=== PATIENT | male | born 1950 | race Two or more races ===

== ENCOUNTER 2018-08-20 07:50 | Inpatient (IN) | payer MEDICARE, BC ==
[~2018-08-20] VITALS: Ht 167.6 cm; Wt 76.7 kg
--- NOTE | 2018-08-20 07:52 | NUR ---
BIB SELF 68 YEAR OLD MALE C/O EPIGASTRIC PAIN SINCE THIS AM. VOMITED X1 AT 0730. ALERT AND ORIENTED X4, BREATHIGN EVEN AND UNLABORED WITH NO DISTRESS NOTED. SKIN WARM TO TOUCH AND INTACT. AWAITING TO BE SEEN BY .
[2018-08-20] MEDS ORDERED: PANTOPRAZOLE 40 MG VIAL ONE (08:12)
[2018-08-20] MEDS ORDERED: ONDANSETRON HCL/PF 4 MG/2 ML VIAL ONE (08:12)
[2018-08-20] MEDS ORDERED: HYDROMORPHONE INJ 2 MG/ML DISP.SYRIN ONE (08:13)
[2018-08-20 08:28] LABS: BASOPHILS # (AUTO) 0.1 /CMM (0.0-0.2); BASOPHILS % (AUTO) 0.5 % (0.0-2.0); EOSINOPHILS % (AUTO) 1.8 % (0.0-6.0); HEMATOCRIT 47 % (39-51); HEMOGLOBIN 15.2 g/dL (13.5-17.5); LYMPHOCYTES # (AUTO) 1.9 /CMM (0.8-4.8); MEAN CORPUSCULAR HGB CONC 33 g/dl (31.0-36.0); MEAN CORPUSCULAR VOLUME 91 fL (80-96); MONOCYTES # (AUTO) 0.4 /CMM (0.1-1.30); MONOCYTES % (AUTO) 2.7 % (2.0-12.0); NEUTROPHILS # (AUTO) 13.1 /CMM (1.8-8.9); PLATELET COUNT (AUTO) 253 /CMM (150-450); RED BLOOD CELL COUNT(AUTO) 5.13 MIL/uL (4.5-6.0); WHITE BLOOD COUNT (AUTO) 15.7 K/uL (4.3-11.0)
[2018-08-20] MEDS ORDERED: ONDANSETRON HCL/PF 4 MG/2 ML VIAL IVP PRN ×2 (08:30→11:30)
[2018-08-20] MEDS ORDERED: IV NS 0.9% 1,000 ML BAG IV ONE (08:30)
[2018-08-20] MEDS ORDERED: HYDROMORPHONE 1 MG/1 ML DISP.SYRIN IV ONE (08:30)
[2018-08-20] MEDS ORDERED: NORMAL SALINE FLUSH 10 ML SYR IV SCH (08:30)
--- NOTE | 2018-08-20 08:39 | NUR ---
RAD PATY HAT BEDSIDE TO TAKE PATIENT FOR CT SCAN
[2018-08-20 08:46] LABS: CALCIUM, SERUM 9.5 mg/dL (8.5-10.1); CARBON DIOXIDE 27 mmol/L (21-32); CHLORIDE 99 mmol/L (98-107); CREATININE 0.9 mg/dL (0.6-1.3); GLUCOSE 193 mg/dL (74-106); POTASSIUM 3.5 mmol/L (3.5-5.1); SODIUM SERUM 136 mmol/L (136-145); UREA NITROGEN, BLOOD 13 mg/dL (7-18)
[2018-08-20] MEDS ORDERED: PANTOPRAZOLE 40 MG VIAL IV SCH (09:00)
[2018-08-20] MEDS ORDERED: GLIP5TAB13 PO (09:23)
[2018-08-20] MEDS ORDERED: METF-440 PO (09:23)
[2018-08-20] MEDS ORDERED: ATEN50TA PO (09:23)
[2018-08-20] MEDS ORDERED: ROSU5TAB12 PO (09:23)
[2018-08-20] MEDS ORDERED: LOSA1TAB42 PO (09:23)
[2018-08-20] MEDS ORDERED: ESOM40CA52 PO (09:23)
[2018-08-20] MEDS ORDERED: AMLO10TA7 PO (09:23)
[2018-08-20] MEDS ORDERED: MULT-451 PO (09:27)
[2018-08-20] MEDS ORDERED: ASPI-1169 PO (09:27)
[2018-08-20 09:56] LABS: AMYLASE 1633 U/L (25-115)
[2018-08-20 10:07] LABS: LIPASE 50918 U/L (73-393)
--- NOTE | 2018-08-20 10:20 | NUR ---
[facility]
--- NOTE | 2018-08-20 11:12 | NUR ---
REPORT GIVEN TO TYLER PATIENT WILL BE GOING TO ROOM 209
[2018-08-20 11:15] VITALS: BP 126/83
--- NOTE | 2018-08-20 11:15 | NUR ---
MS VOCAL MUSIC TEACHER 68 male admitted to [facility] for acute pancreatitis. Patient is A/O x4, cooperative and pleasant. Ambulates independently, denies pain. Stable on RA, oxygen sat 93%. Skin intact. Orientation to room, unit, staff. Instructed to use call light if he needs assistance, verbalized understanding, maintained safety. Will cont to monitor.
[2018-08-20] MEDS ORDERED: Z GUARD REMEDY 2 OZ OINT TP PRN (11:30)
[2018-08-20] MEDS ORDERED: DEXTROSE 50%-WATER 50 ML DISP.SYRIN IV PRN (11:30)
[2018-08-20] MEDS ORDERED: ACETAMINOPHEN 325 MG TABLET PO PRN (11:30)
[2018-08-20] MEDS ORDERED: MORPHINE SULFATE INJ 2 MG/ML DISP.SYRIN IV PRN (11:30)
[2018-08-20] MEDS ORDERED: INSULIN REGULAR, HUMAN 100 UNIT/ML 3 ML VIAL SQ PRN (11:30)
[2018-08-20] MEDS: BLOOD SUGAR DIAGNOSTIC 1 EACH STRIP IN SCH ×2 (11:52→17:20)
[2018-08-20] MEDS: HYDROMORPHONE INJ 2 MG/ML DISP.SYRIN IV PRN ×3 (11:53→20:21)
[2018-08-20] MEDS: IV NS 0.9% 1,000 ML IV PRN ×2 (11:54→18:17)
[2018-08-20] MEDS ORDERED: HYDROMORPHONE INJ 0.5 MG/0.5 ML SYRINGE IV PRN (12:00)
[2018-08-20] MEDS: MULTIVIT W/MINERALS 1 TAB TABLET PO SCH (12:08)
[2018-08-20] MEDS: ENOXAPARIN SODIUM 40 MG/0.4 ML DISP.SYRIN SQ SCH (12:08)
--- NOTE | 2018-08-20 13:49 | NUR ---
Patient is seen by ELIEZER Vickers, patient to be transferred to [facility] for Tele monitoring. Report given to JEREMIE Johnson for continuity of care.
[2018-08-20 14:50] VITALS: BP 110/69
--- NOTE | 2018-08-20 14:50 | NUR ---
MS/line department supervisor Patient transferred to in stable condition via wheelchair. All personal belongings withpatient, accompanied by PHARMACIST ASSISTANT and son. Report already given to Alex.
--- NOTE | 2018-08-20 14:56 | NUR ---
TELE/BUSINESS INTELLIGENCE DIRECTOR PATIENT TRANSFER FROM MS 2 IN STABLE CONDITION VIA WHEEL CHAIR ACCOMPANIED BY NURSE. REPORT GIVEN BY TYLER CHAO. A/O X 4. NO SIGNS OF ACUTE DISTRESS. NO COMPLAIN OF PAIN OR DISCOMFORT AT THIS TIME. ON TELE MONITOR NOTED WITH SINUS RHYTHM 80. ALL NEEDS ATTENDED TO. CALL LIGHT WITHIN REACH. WILL CONTINUE TO MONITOR TO ENSURE SAFETY.
[2018-08-20 15:06] VITALS: BP 110/69
[2018-08-20 16:00] VITALS: BP 114/70
--- NOTE | 2018-08-20 18:36 | NUR ---
TELE/RN CLOSING NOTE PATIENT IN BED IN STABLE CONDITION. A/O X 4. NO SIGNS OF ACUTE DISTRESS. NO COMPLAIN OF PAIN OR DISCOMFORT. ON TELE MONITOR NOTED WITH SINUS RHYTHM OF 76. NPO STATUS AT THIS TIME SECONDARY TO ACUTE PANCREATITIS. ALL NEEDS ATTENDED TO. CALL LIGHT WITHIN REACH. WILL ENDORSE TO NEXT SHIFT FOR CONTINUITY OF CARE.
--- NOTE | 2018-08-20 18:58 | NUR ---
TELE/RN SEEN BY ELIEZER RUSSO FOR GI WITH ORDERS TO DC NORMAL SALINE FLUIDS AND START LR AT 150MLS/HR.
--- NOTE | 2018-08-20 19:55 | NUR ---
RAILWAY STATION MANAGER OPENING NOTES RECEIVED PT IN BED, AWAKE ALERT ORIENTED X4, BREATHING EVEN AND UNLABORED ON ROOM AIR, NO COUGH, CONGESTION OR SOB NOTED, COMPLAINT OF EPIGASTRIC PAIN 01/16, WILL ADMINISTER PRN MED ORDERED. IV ACCESS ON THE R HAND #20 G WITH LR @150ML/HR. DATA OPERATIONS MANAGER IN PLACE, SR IN THE 70S. BED IN LOCKED POSITION, CALL LIGHT WITHIN REACH AT ALL TIMES, WILL CONTINUE TO MONITOR
[2018-08-20 20:00] VITALS: BP 123/77
[2018-08-20] MEDS: IV LR 1000 ML 1,000 ML IV PRN (20:23)
--- NOTE | 2018-08-20 20:40 | NUR ---
EGD CONSENT FORM SIGNED IN CHART
[2018-08-21] VITALS: BP 120/70
[2018-08-21] MEDS: HYDROMORPHONE INJ 2 MG/ML DISP.SYRIN IV PRN ×6 (00:18→22:30)
[2018-08-21] MEDS: LORAZEPAM INJ 2 MG/ML VIAL IV PRN (00:18)
[2018-08-21] MEDS: BLOOD SUGAR DIAGNOSTIC 1 EACH STRIP IN SCH ×4 (00:25→18:09)
[2018-08-21 04:15] VITALS: BP 135/76
[2018-08-21] MEDS: AMLODIPINE BESYLATE 10 MG TABLET PO SCH ×2 (05:25→08:59)
--- NOTE | 2018-08-21 06:06 | NUR ---
BAR STAFF CLOSING NOTES PT REMAINS IN BED SLEEPING, EASILY AROUSED TO TOUCH OR NAME CALL, BREATHING EVEN AND UNLABORED ON ROOM AIR, NO COUGH, CONGESTION OR SOB NOTED, NO COMPLAINT OF PAIN OR DISCOMFORT AT THIS TIME. IV ACCESS ON THE R HAND #20 G WITH LR @150ML/HR. ANALYST MARKET INTELLIGENCE IN PLACE, SR IN THE 70S. ALL NEEDS ATTENDED TO. BED IN LOCKED POSITION, CALL LIGHT WITHIN REACH AT ALL TIMES, WILL ENDORSE TO DAY NURSE FOR ZURI.
[2018-08-21] MEDS: IV LR 1000 ML 1,000 ML IV PRN ×2 (06:56→17:57)
--- NOTE | 2018-08-21 07:45 | NUR ---
RESEARCH NEUROPSYCHOLOGIST NOTES RECEIVED PATIENT IN BED ALERT ORIENTED X 3. NO ACUTE DISTRESS NOTED. BREATHING UNLABORED. NO SOB NOTED. DENIED ANY PAIN AT THIS TIME. IV ACCESS, PATENT AND INTACT, NO REDNESS, NO SWELLING NOTED. SAFETY MEASURES IN PLACE. CALL LIGHT WITHIN REACH. WILL CONTINUE TO MONITOR ACCORDINGLY.
[2018-08-21 08:00] VITALS: BP 130/71
[2018-08-21 08:01] LABS: BASOPHILS # (AUTO) 0.1 /CMM (0.0-0.2); BASOPHILS % (AUTO) 1.1 % (0.0-2.0); EOSINOPHILS % (AUTO) 3.2 % (0.0-6.0); HEMATOCRIT 39 % (39-51); HEMOGLOBIN 13.1 g/dL (13.5-17.5); LYMPHOCYTES # (AUTO) 1.9 /CMM (0.8-4.8); LYMPHOCYTES % (AUTO) 22.4 % (20.0-44.0); MEAN CORPUSCULAR HGB CONC 34 g/dl (31.0-36.0); MEAN CORPUSCULAR VOLUME 90 fL (80-96); MONOCYTES # (AUTO) 0.5 /CMM (0.1-1.30); MONOCYTES % (AUTO) 5.4 % (2.0-12.0); NEUTROPHILS # (AUTO) 5.8 /CMM (1.8-8.9); NEUTROPHILS % (AUTO) 67.9 % (43.0-81.0); PLATELET COUNT (AUTO) 160 /CMM (150-450); RED BLOOD CELL COUNT(AUTO) 4.33 MIL/uL (4.5-6.0); WHITE BLOOD COUNT (AUTO) 8.6 K/uL (4.3-11.0)
[2018-08-21 08:27] LABS: ALANINE AMINOTRANSFERASE 35 U/L (12-78); ALKALINE PHOSPHATASE 91 U/L (46-116); AMYLASE 157 U/L (25-115); ASPARTATE AMINOTRANSFERASE 27 U/L (15-37); BILIRUBIN,DIRECT 0.2 mg/dL (0.0-0.2); BILIRUBIN,TOTAL 0.6 mg/dL (0.2-1.0); CALCIUM, SERUM 8.9 mg/dL (8.5-10.1); CARBON DIOXIDE 26 mmol/L (21-32); CHLORIDE 104 mmol/L (98-107); CREATININE 0.8 mg/dL (0.6-1.3); GLUCOSE 123 mg/dL (74-106); PHOSPHORUS 2.7 mg/dL (2.5-4.9); POTASSIUM 3.5 mmol/L (3.5-5.1); SODIUM SERUM 139 mmol/L (136-145); TOTAL PROTEIN, SERUM 6.8 g/dL (6.4-8.2); UREA NITROGEN, BLOOD 10 mg/dL (7-18)
[2018-08-21 08:35] LABS: ALBUMIN 3.1 g/dL (3.4-5.0); MAGNESIUM 1.6 mg/dL (1.8-2.4)
[2018-08-21 08:42] LABS: CHOLESTEROL 118 mg/dL (<200); HDL CHOLESTEROL 47 mg/dL (40-60); TRIGLYCERIDES 95 mg/dL (30-150)
[2018-08-21 08:43] LABS: LDL 60 mg/dL (0-99)
[2018-08-21] MEDS: PANTOPRAZOLE 40 MG VIAL IV SCH (08:48)
[2018-08-21] MEDS: ENOXAPARIN SODIUM 40 MG/0.4 ML DISP.SYRIN SQ SCH (08:53)
[2018-08-21] MEDS: LOSARTAN POTASSIUM 50 MG TABLET PO SCH (08:58)
[2018-08-21] MEDS: HYDROCHLOROTHIAZIDE 25 MG TABLET PO SCH (08:58)
[2018-08-21] MEDS: ATENOLOL 50 MG TABLET PO SCH (08:59)
[2018-08-21] MEDS: MULTIVIT W/MINERALS 1 TAB TABLET PO SCH (08:59)
[2018-08-21] MEDS ORDERED: Medication Not On Formulary EA (Losartan/Hydrochlorothiazide (Losartan-Hctz 100-12.5 Mg PO SCH (09:00)
[2018-08-21 09:20] LABS: LIPASE 3397 U/L (73-393)
[2018-08-21] MEDS ORDERED: ZOLPIDEM TARTRATE 5 MG TABLET PO PRN (11:00)
[2018-08-21] MEDS: Magnesium 1GM/D5W 100ML PREMIX 100 ML IV SCH ×2 (11:22→12:23)
[2018-08-21 14:40] LABS: C-REACTIVE PROTEIN 15.7 mg/dL (0.0-0.9)
[2018-08-21 16:05] VITALS: BP 129/88
[2018-08-21] MEDS ORDERED: ATORVASTATIN 10 MG TABLET PO SCH (18:00)
--- NOTE | 2018-08-21 19:00 | NUR ---
MS RN NOTES RECEIVED PATIENT IN BED ALERT ORIENTED X 3. NO ACUTE DISTRESS NOTED. BREATHING UNLABORED. NO SOB NOTED. DENIED ANY PAIN. IV ACCESS, PATENT AND INTACT, NO REDNESS, NO SWELLING NOTED.DUE MEDICATIONS GIVEN, NO ASE NOTED. NEEDS ATTENDED AND ANTICIPATED. KEPT CLEAN, DRY AND COMFORTABLE. SAFETY MEASURES IN PLACE. CALL LIGHT WITHIN REACH. ENDORSED TO NIGHT NURSE FOR CONTINUITY OF CARE.
--- NOTE | 2018-08-21 20:01 | NUR ---
RN MS OPENING NOTES RECEIVED PT IN BED, AWAKE ALERT ORIENTED X4, BREATHING EVEN AND UNLABORED ON ROOM AIR, NO COUGH, CONGESTION OR SOB NOTED. NO COMPLAINT OF PAIN OR DISCOMFORT. IV ACCESS ON THE R HAND #20 G WITH LR @150ML/HR. BED IN LOCKED POSITION, CALL LIGHT WITHIN REACH AT ALL TIMES, WILL CONTINUE TO MONITOR
[2018-08-21 20:18] VITALS: BP 143/91
[2018-08-22] MEDS: BLOOD SUGAR DIAGNOSTIC 1 EACH STRIP IN SCH ×3 (00:30→12:42)
[2018-08-22] MEDS: IV LR 1000 ML 1,000 ML IV PRN ×2 (01:57→08:07)
[2018-08-22] MEDS: HYDROMORPHONE INJ 2 MG/ML DISP.SYRIN IV PRN ×3 (03:40→12:59)
--- NOTE | 2018-08-22 06:17 | NUR ---
THERMIT WELDING MACHINE OPERATOR CLOSING NOTES PT REMAINS IN BED SLEEPING, EASILY AROUSED TO TOUCH OR NAME CALL, BREATHING EVEN AND UNLABORED ON ROOM AIR, NO COUGH, CONGESTION OR SOB NOTED, NO COMPLAINT OF PAIN OR DISCOMFORT AT THIS TIME. IV ACCESS ON THE R HAND #20 G SL, AND L FA 20G WITH LR @150ML/HR. DIMENSION QUARRY SUPERVISOR IN PLACE, SR IN THE 70S. ALL NEEDS ATTENDED TO. BED IN LOCKED POSITION, CALL LIGHT WITHIN REACH AT ALL TIMES, WILL ENDORSE TO DAY NURSE FOR ZURI.
--- NOTE | 2018-08-22 07:38 | NUR ---
RN OPENING NOTES PT WAS RECEIVED IN BED AT LOWEST AND LOCKED POSITION WITH SIDE RAILS UP X2, A/O X4, BREATHING EVEN AND UNLABORED ON RA, NO S/S OF PAIN OR DISTRESS NOTED AT THIS TIME, IV PATENT AND INTACT, CURRENTLY NPO FOR PLANNED EGD, SAFETY PRECAUTIONS IN PLACE, CALL LIGHT WITHIN REACH, WILL MONITOR ACCORDINGLY
[2018-08-22 07:41] LABS: BASOPHILS % (AUTO) 0.5 % (0.0-2.0); EOSINOPHILS % (AUTO) 2.9 % (0.0-6.0); HEMATOCRIT 38 % (39-51); HEMOGLOBIN 12.7 g/dL (13.5-17.5); LYMPHOCYTES # (AUTO) 1.3 /CMM (0.8-4.8); LYMPHOCYTES % (AUTO) 18.8 % (20.0-44.0); MEAN CORPUSCULAR HGB CONC 34 g/dl (31.0-36.0); MEAN CORPUSCULAR VOLUME 89 fL (80-96); MONOCYTES # (AUTO) 0.4 /CMM (0.1-1.30); MONOCYTES % (AUTO) 6.1 % (2.0-12.0); NEUTROPHILS % (AUTO) 71.7 % (43.0-81.0); PLATELET COUNT (AUTO) 182 /CMM (150-450); RED BLOOD CELL COUNT(AUTO) 4.26 MIL/uL (4.5-6.0)
[2018-08-22 07:54] LABS: CALCIUM, SERUM 9.2 mg/dL (8.5-10.1); CREATININE 0.8 mg/dL (0.6-1.3); MAGNESIUM 1.9 mg/dL (1.8-2.4); PHOSPHORUS 2.7 mg/dL (2.5-4.9); POTASSIUM 3.6 mmol/L (3.5-5.1)
[2018-08-22 08:00] VITALS: BP 146/82
[2018-08-22] MEDS: PANTOPRAZOLE 40 MG VIAL IV SCH (08:05)
[2018-08-22] MEDS: ATENOLOL 50 MG TABLET PO SCH (08:45)
[2018-08-22] MEDS: AMLODIPINE BESYLATE 10 MG TABLET PO SCH (08:45)
[2018-08-22] MEDS: HYDROCHLOROTHIAZIDE 25 MG TABLET PO SCH (08:45)
[2018-08-22] MEDS: LOSARTAN POTASSIUM 50 MG TABLET PO SCH (08:45)
[2018-08-22] MEDS: MULTIVIT W/MINERALS 1 TAB TABLET PO SCH (08:46)
[2018-08-22] MEDS: ENOXAPARIN SODIUM 40 MG/0.4 ML DISP.SYRIN SQ SCH (08:49)
[2018-08-22 16:00] VITALS: BP 147/95
[2018-08-22] MEDS: LORAZEPAM INJ 2 MG/ML VIAL IV PRN (16:21)
--- NOTE | 2018-08-22 17:40 | NUR ---
AMA NOTE PT LEFT AMA AT THIS TIME. HE SAID HE WAS LEAVING BECAUSE HE WAS NPO FOR THE LAST 3 DAYS. RAFAELA VELEZ STAVE CUTTER TALKED TO HIM REGARDING HIS NPO STATUS BUT HE STILL DID NOT LIKE THE FACT THAT HE WAS NPO. HE SIGNED AMA PAPERWORK AND EXIT CARE PAPERWORK WAS PROVIDED. IV AND ID BAND WERE REMOVED. HE LEFT VIA PRIVATE CAR WITH HIS .
--- NOTE | 2018-08-22 19:24 | NUR ---
Unique Id: [id number]
== END 2018-08-22 17:40 | disposition left against medical advice (07) | DRG 439 ==
LOC: ER 07:56 → MEDSG2 10:46 → MED 14:44 → TELE 16:40 → MED 08-21 09:36
PROVIDERS: ADMIT Registered Nurse; ATTEND Registered Nurse
DX: K85.20 Alcohol induced acute pancreatitis without necrosis or infection (principal); F10.288 Alcohol dependence with other alcohol-induced disorder; I10 Essential (primary) hypertension; G89.29 Other chronic pain; K21.9 Gastro-esophageal reflux disease without esophagitis; Z79.84 Long term (current) use of oral hypoglycemic drugs; K86.1 Other chronic pancreatitis; D72.829 Elevated white blood cell count, unspecified; Z79.82 Long term (current) use of aspirin; K70.0 Alcoholic fatty liver; E11.9 Type 2 diabetes mellitus without complications
CPT/HCPCS: 36415; 71045-TC; 80048-TC; 80061-TC; 80076-TC; 82150-TC; 82962-TC; 83615-TC; 83690-TC; 83735-TC; 84100-TC; 84484-TC; 85025-TC; 85730-TC; 86140-TC; 86301; 87081-TC; A4216; C9113; G0378; J1170; J1650; J1815; J2060; J2405; J3475; J7030; J7120

== ENCOUNTER 2018-08-22 22:37 | Inpatient (IN) | payer MEDICARE, BC ==
[~2018-08-22] VITALS: Ht 167.6 cm; Wt 77.6 kg
[~2018-08-22 22:37] MED LIST: AMLO10TA7 PO; ASPI-1169 PO; ATEN50TA PO; ESOM40CA52 PO; GLIP5TAB13 PO; LOSA1TAB42 PO; METF-440 PO; MULT-451 PO; ROSU5TAB12 PO
--- NOTE | 2018-08-22 23:05 | NUR ---
PT BIBSELF COMPLAINING OF UPPER ABDOMINAL PAIN. PT STATES IT IS WORSE WITH MOVEMENT AND INSPIRATION. PT WAS ADMITTED TO THIS HOSPITAL AND LEFT AMA THIS MORNING. PT STATES "I THOUGHT I WAS FEELING BETTER AND JUST WANTED TO GO HOME, BUT WHEN I WAS AT HOME THE PAIN GOT WORSE AND I FELT SHORT OF BREATH." PT IS AAOX4. RESPIRATIONS EVEN AND UNLABORED. SKIN WARM AND INTACT. NO ACUTE DISTRESS NOTED. PLACED ON MONITOR, WILL CONTINUE TO MONITOR
[2018-08-22] MEDS ORDERED: MAG HYDROX/AL HYDROX/SIMETH 30 ML UDC ONE (23:20)
[2018-08-22] MEDS ORDERED: HYDROCODONE/APAP 10/325MG 1 EA TABLET ONE (23:20)
[2018-08-22] MEDS ORDERED: ONDANSETRON 4 MG TAB.RAPDIS ONE (23:21)
--- NOTE | 2018-08-22 23:25 | NUR ---
IV INITIATED RIGHT AC 18G. LABS DRAWN FROM SITE. PROPAGATOR LABORER AT BEDSIDE FOR COLLECTION. IV INTACT AND PATENT, PLACED ON SALINE LOCK
[2018-08-22] MEDS ORDERED: HYDROCODONE/APAP 10/325MG 1 EA TABLET PO ONE (23:30)
[2018-08-22] MEDS ORDERED: MAG HYDROX/AL HYDROX/SIMETH 30 ML UDC PO ONE (23:30)
[2018-08-22] MEDS ORDERED: ONDANSETRON 4 MG TAB.RAPDIS SL ONE (23:30)
[2018-08-22 23:33] LABS: BASOPHILS # (AUTO) 0.1 /CMM (0.0-0.2); BASOPHILS % (AUTO) 0.7 % (0.0-2.0); EOSINOPHILS % (AUTO) 1.6 % (0.0-6.0); HEMATOCRIT 38 % (39-51); LYMPHOCYTES % (AUTO) 13.2 % (20.0-44.0); MEAN CORPUSCULAR HGB CONC 34 g/dl (31.0-36.0); MEAN CORPUSCULAR VOLUME 88 fL (80-96); MONOCYTES # (AUTO) 0.4 /CMM (0.1-1.30); MONOCYTES % (AUTO) 5.7 % (2.0-12.0); NEUTROPHILS % (AUTO) 78.8 % (43.0-81.0); PLATELET COUNT (AUTO) 209 /CMM (150-450); RED BLOOD CELL COUNT(AUTO) 4.33 MIL/uL (4.5-6.0); WHITE BLOOD COUNT (AUTO) 7.7 K/uL (4.3-11.0)
[2018-08-22 23:42] LABS: CALCIUM, SERUM 9.6 mg/dL (8.5-10.1); CREATININE 0.7 mg/dL (0.6-1.3)
[2018-08-22 23:48] LABS: ALBUMIN 3.5 g/dL (3.4-5.0); BILIRUBIN,DIRECT 0.2 mg/dL (0.0-0.2); BILIRUBIN,TOTAL 0.7 mg/dL (0.2-1.0); TOTAL PROTEIN, SERUM 7.6 g/dL (6.4-8.2)
--- NOTE | 2018-08-23 01:40 | NUR ---
BED ASSIGNMENT 320-2
--- NOTE | 2018-08-23 01:45 | NUR ---
GAVE REPORT TO CECILY CHAO FOR ZURI
--- NOTE | 2018-08-23 01:50 | NUR ---
PT TRANSFERRED TO [place] BED 320-2 [facility]IA [facility]
[2018-08-23] MEDS ORDERED: ONDANSETRON HCL/PF 4 MG/2 ML VIAL IVP PRN (02:00)
--- NOTE | 2018-08-23 02:00 | NUR ---
RN MS NOTES PT BROUGHT INTO THE UNIT VIA GURNEY, ACCOMPANIED BY ER STAFF. PT IN NO ACUTE DISTRESS AT THIS TIME, ALERT AND ORIENTED X 4, NO SOB NOTED, BREATHING EVEN AND UNLABORED, DENIES NAUSEA, DIZZINESS/VOMITING. PT REPORTED THAT HE LEFT HOSPITAL EARLIER TODAY AND BELIEVED HE FELT BETTER BUT WHEN HE GOT HOME, HE HAD A HARD TIME BREATHING DUE TO THE EPIGASTRIC PAIN AND DECIDED TO GO BACK TO THE HOSPITAL AND BE RE-ADMITTED. ORIENTED PT TO THE UNIT, ROOM, ADMISSION PROCESS, CALL LIGHT AND USE OF CALL LIGHT AND PT VERBALIZED UNDERSTANDING. PT WITH GOOD SAFETY AWARENESS. PLACED BED IN LOW POSITION, LOCKED IN PLACE. CALL LIGHT WITHIN EASY REACH. WILL CONTINUE TO MONITOR PT.
[2018-08-23] MEDS: HYDROMORPHONE INJ 2 MG/ML DISP.SYRIN IV PRN ×5 (02:20→20:52)
[2018-08-23] MEDS: IV NS 0.9% 1,000 ML IV PRN ×2 (02:21→15:05)
--- NOTE | 2018-08-23 06:25 | NUR ---
CLOSING NOTES PT IN BED, ASLEEP BUT EASILY AROUSABLE. VERBALLY RESPONSIVE, ALERT AND ORIENTED X 4, NO DISTRESS AT THIS TIME. ALL PATIENT'S NEEDS ATTENDED TO, PT INDEPENDENT IN BED MOBILITY. CALL LIGHT PLACED WITHIN EASY REACH AND BED LOCKED IN PLACE AND PLACED IN LOW POSITION. WILL ENDORSE TO AM SHIFT NURSE FOR CONTINUITY OF CARE.
[2018-08-23] MEDS ORDERED: INSULIN REGULAR, HUMAN 100 UNIT/ML 3 ML VIAL SQ PRN (06:30)
[2018-08-23] MEDS ORDERED: DEXTROSE 50%-WATER 50 ML DISP.SYRIN IV PRN (06:30)
[2018-08-23] MEDS ORDERED: PANTOPRAZOLE 40 MG VIAL IV SCH (07:30)
[2018-08-23 08:00] VITALS: BP 132/69
--- NOTE | 2018-08-23 08:00 | NUR ---
MS RN RECEIVED ON BED,AWAKE,ALERT,ORIENTED X4,NOT IN ANY FORM OF DISTRESS, RESPIRATIONS EVEN AND UNLABORED,NO SOB NOTED, DENIES PAIN AT THIS TIME, WILL MONITOR PATIENT.
[2018-08-23 08:47] LABS: BASOPHILS % (AUTO) 0.6 % (0.0-2.0); EOSINOPHILS % (AUTO) 2.9 % (0.0-6.0); HEMATOCRIT 37 % (39-51); HEMOGLOBIN 12.3 g/dL (13.5-17.5); LYMPHOCYTES % (AUTO) 14.9 % (20.0-44.0); MEAN CORPUSCULAR HGB CONC 34 g/dl (31.0-36.0); MEAN CORPUSCULAR VOLUME 89 fL (80-96); MONOCYTES # (AUTO) 0.5 /CMM (0.1-1.30); MONOCYTES % (AUTO) 7.7 % (2.0-12.0); NEUTROPHILS # (AUTO) 5.2 /CMM (1.8-8.9); NEUTROPHILS % (AUTO) 73.9 % (43.0-81.0); PLATELET COUNT (AUTO) 212 /CMM (150-450); RED BLOOD CELL COUNT(AUTO) 4.12 MIL/uL (4.5-6.0)
[2018-08-23 08:54] LABS: ALBUMIN 3.1 g/dL (3.4-5.0); BILIRUBIN,TOTAL 0.5 mg/dL (0.2-1.0); CREATININE 0.7 mg/dL (0.6-1.3); MAGNESIUM 1.9 mg/dL (1.8-2.4); PHOSPHORUS 3.2 mg/dL (2.5-4.9); POTASSIUM 3.5 mmol/L (3.5-5.1); TOTAL PROTEIN, SERUM 6.9 g/dL (6.4-8.2)
[2018-08-23] MEDS ORDERED: Medication Not On Formulary EA (Losartan/Hydrochlorothiazide (Losartan-Hctz 100-12.5 Mg PO SCH (09:00)
[2018-08-23] MEDS ORDERED: ASPIRIN 81 MG TAB.CHEW PO SCH (09:00)
[2018-08-23] MEDS ORDERED: ATENOLOL 50 MG TABLET PO SCH (09:00)
[2018-08-23] MEDS ORDERED: AMLODIPINE BESYLATE 10 MG TABLET PO SCH (09:08)
[2018-08-23] MEDS ORDERED: glipiZIDE 5 MG TABLET PO SCH (09:10)
[2018-08-23] MEDS: METFORMIN 500 MG TABLET PO SCH ×2 (09:21→17:50)
--- NOTE | 2018-08-23 10:00 | NUR ---
MS RN WAS SEEN BY MUNIRA MORAN/ ORDERS MADE AND CARRIED OUT
--- NOTE | 2018-08-23 11:30 | NUR ---
MS RN STARTED ON CLEAR LIQUIDS,TOLERATED WELL.
[2018-08-23] MEDS: BLOOD SUGAR DIAGNOSTIC 1 EACH STRIP IN SCH ×2 (12:06→17:50)
[2018-08-23 16:00] VITALS: BP 125/67
--- NOTE | 2018-08-23 17:39 | NUR ---
Patient is alert,signed out AMA yesterday and now returned to ED due to severe abd pain associated with SOB. He lives at home with his spouse, he is ambulatory and independent with adl's. Has no DME or homehealth reported. His pcp is Dr. Juan Self in [place]. He plan to return home once discharge. Addendum: 08/23/18 at 1739 by RJ MENDOZA RN Amended: Links added.
[2018-08-23] MEDS ORDERED: ATORVASTATIN 10 MG TABLET PO SCH (18:00)
--- NOTE | 2018-08-23 18:00 | NUR ---
MS CHAO FULL LIQUIDS,TOLERATED WELL.
[2018-08-23] MEDS ORDERED: ZOLPIDEM TARTRATE 5 MG TABLET PO PRN (18:30)
--- NOTE | 2018-08-23 19:34 | NUR ---
MS RN ON BED,NO DISTRESS NOTED.
--- NOTE | 2018-08-23 19:40 | NUR ---
MS/RN NOTES RECEIVED PT. LYING IN BED. PT. IS AWAKE, ALERT AND ORIENTED X4. BREATHING EVEN AND UNLABORED ON ROOM AIR. NO SOB, RESPIRATORY DISTRESS OR COMPLAINTS OF PAIN NOTED AT THIS TIME. PT. WITH LEFT FOREARM 22 GAUGE PERIPHERAL IV PRESENT, PATENT AND INTACT ADMINISTERING TO PT. NS @ 125 ML/HR. BED LOCKED AND IN LOWEST POSITION, SIDE RAILS UP X2, CALL LIGHT WITHIN REACH, WILL CONTINUE TO MONITOR.
[2018-08-23 20:00] VITALS: BP_SYST 133; BP_SYST 166; BP_DIAS 78; BP_DIAS 82
[2018-08-24] MEDS: BLOOD SUGAR DIAGNOSTIC 1 EACH STRIP IN SCH ×2 (00:34→06:00)
--- NOTE | 2018-08-24 06:15 | NUR ---
MS/RN NOTES PT. IS VERY ANXIOUS, WANTS TO LEAVE, CALLED FAMILY TO PICK HIM UP. EXPLAINED RISKS AND BENEFITS ABOUT LEAVING AGAINST MEDICAL ADVICE. PT. CONTINUES TO WANT TO LEAVE. AMA FORM SIGNED AND PLACED IN PT. CHART. IV ACCESS REMOVED. NO S/S OF INFECTION OR BLEEDING NOTED. PT. ID BAND REMOVED. EPIC SECTION WEAVER ANALYSIS SPECIALIST KEITH INFORMED. PT. LEFT THE FLOOR IN STABLE CONDITION WITH FAMILY AND BELONGINGS AT 0615.
[2018-08-24] MEDS ORDERED: PANTOPRAZOLE 40 MG TABLET.DR PO SCH (07:30)
[2018-08-24] MEDS ORDERED: LOSARTAN POTASSIUM 50 MG TABLET PO SCH (09:00)
[2018-08-24] MEDS ORDERED: MULTIVIT W/MINERALS 1 TAB TABLET PO SCH (09:00)
[2018-08-24] MEDS ORDERED: HYDROCHLOROTHIAZIDE 25 MG TABLET PO SCH (09:00)
== END 2018-08-24 06:15 | disposition left against medical advice (07) | DRG 439 ==
LOC: ER 22:39 → MED 08-23 01:19
PROVIDERS: ADMIT Family Medicine; ATTEND Family Medicine
DX: K85.90 Acute pancreatitis without necrosis or infection, unspecified (principal); E87.1 Hypo-osmolality and hyponatremia; I10 Essential (primary) hypertension; E78.5 Hyperlipidemia, unspecified; E11.9 Type 2 diabetes mellitus without complications; E86.1 Hypovolemia; Z87.891 Personal history of nicotine dependence; Z79.84 Long term (current) use of oral hypoglycemic drugs; F10.21 Alcohol dependence, in remission; K76.0 Fatty (change of) liver, not elsewhere classified; K40.20 Bilateral inguinal hernia, without obstruction or gangrene, not specified as recurrent; N28.1 Cyst of kidney, acquired
CPT/HCPCS: 36415; 80048-TC; 80053-TC; 80061-TC; 80076-TC; 82962-TC; 83690-TC; 83735-TC; 84100-TC; 85025-TC; 87081-TC; C9113; G0378; J1170; J1815; J7030; Q0162

== ENCOUNTER 2022-12-20 14:43 | Emergency (ER) | payer MEDICARE, BC ==
[~2022-12-20] VITALS: Ht 172.7 cm; Wt 72.6 kg
[~2022-12-20 14:43] MED LIST changes: +AMLO-213 PO; -AMLO10TA7 PO; -ROSU5TAB12 PO; +ROSU5TAB13 PO
--- NOTE | 2022-12-20 14:54 | NUR ---
headache, subjective high b/p. states ran out 4 days ago. also requesting xanax for sleep since son's recent passing.
--- NOTE | 2022-12-20 15:05 | NUR ---
AT BEDSIDE FOR EVAL
[2022-12-20] MEDS ORDERED: ATEN50TA PO (15:22)
[2022-12-20] MEDS ORDERED: ALPR1TAB2 PO (15:22)
[2022-12-20 15:36] VITALS: BP 130/75
--- NOTE | 2022-12-20 15:36 | NUR ---
Patient discharged to home in stable condition. Written and verbal after care instructions given. Patient verbalizes understanding of instruction.
== END 2022-12-20 15:36 | disposition home or self-care (01) ==
LOC: ER 14:48
DX: Z76.0 Encounter for issue of repeat prescription (principal); I10 Essential (primary) hypertension; E11.9 Type 2 diabetes mellitus without complications; F17.200 Nicotine dependence, unspecified, uncomplicated; Z79.84 Long term (current) use of oral hypoglycemic drugs; Z79.899 Other long term (current) drug therapy

== ENCOUNTER 2023-01-14 19:49 | Emergency (ER) | payer MEDICARE, BC ==
[~2023-01-14 19:49] MED LIST changes: +ALPR1TAB2 PO
--- NOTE | 2023-01-14 21:33 | NUR ---
CALLED FOR TRIAGE. NO ANSWER
--- NOTE | 2023-01-14 22:31 | NUR ---
CALLED FOR TRIAGE. NO ANSWER
== END 2023-01-14 22:47 | disposition left against medical advice (07) ==
LOC: ER 19:52
DX: Z53.21 Procedure and treatment not carried out due to patient leaving prior to being seen by health care provider (principal)

== ENCOUNTER 2023-03-11 05:17 | Emergency (ER) | payer MEDICARE, BC ==
[~2023-03-11] VITALS: Ht 172.7 cm; Wt 74.8 kg
[2023-03-11] MEDS ORDERED: KETOROLAC TROMETHAMINE INJ 30 MG/ML VIAL ONE (06:26)
[2023-03-11] MEDS ORDERED: CYCLOBENZAPRINE 10 MG TABLET ONE (06:27)
[2023-03-11] MEDS ORDERED: KETOROLAC TROMETHAMINE INJ 60 MG/2 ML VIAL IM ONE (06:30)
[2023-03-11] MEDS ORDERED: CYCLOBENZAPRINE 10 MG TABLET PO ONE (06:30)
[2023-03-11 08:18] VITALS: BP 121/72; TEMP 98.5; O2SAT 100
== END 2023-03-11 08:19 | disposition home or self-care (01) ==
LOC: ER 05:19
DX: M15.9 Polyosteoarthritis, unspecified (principal); I10 Essential (primary) hypertension; E11.9 Type 2 diabetes mellitus without complications; Z79.899 Other long term (current) drug therapy
CPT/HCPCS: 99283; 96372; 72170; J1885

== ENCOUNTER 2023-04-24 17:39 | Emergency (ER) | payer MEDICARE, BC | END 2023-04-24 18:35 | disposition home or self-care (01) | LOC: ER 18:06 | DX: Z53.21 Procedure and treatment not carried out due to patient leaving prior to being seen by health care provider (principal) ==

== ENCOUNTER 2023-04-27 18:05 | Emergency (ER) | payer MEDICARE, BC ==
[~2023-04-27] VITALS: Ht 172.7 cm; Wt 73.0 kg
[2023-04-27] MEDS ORDERED: CYCLOBENZAPRINE 10 MG TABLET ONE (18:29)
[2023-04-27] MEDS ORDERED: KETOROLAC TROMETHAMINE INJ 30 MG/ML VIAL ONE (18:29)
[2023-04-27] MEDS ORDERED: KETOROLAC TROMETHAMINE INJ 60 MG/2 ML VIAL IM ONE (18:30)
[2023-04-27] MEDS ORDERED: CYCLOBENZAPRINE 10 MG TABLET PO ONE (18:30)
[2023-04-27 19:36] VITALS: BP 128/75; TEMP 98.5; O2SAT 100
== END 2023-04-27 19:36 | disposition home or self-care (01) ==
LOC: ER 18:07
DX: G89.29 Other chronic pain (principal); M54.50 Low back pain, unspecified; I10 Essential (primary) hypertension; E11.9 Type 2 diabetes mellitus without complications; F17.200 Nicotine dependence, unspecified, uncomplicated; Z79.84 Long term (current) use of oral hypoglycemic drugs
CPT/HCPCS: 99283; 96372; J1885

== ENCOUNTER 2023-05-30 00:30 | Emergency (ER) | payer MEDICARE, BC ==
[~2023-05-30] VITALS: Ht 172.7 cm; Wt 69.9 kg
[2023-05-30] MEDS ORDERED: ONDANSETRON 4 MG TAB.RAPDIS ONE (01:05)
[2023-05-30] MEDS ORDERED: ONDANSETRON 4 MG TAB.RAPDIS SL ONE (01:30)
[2023-05-30 01:54] VITALS: BP 138/75; TEMP 98.4; O2SAT 98
== END 2023-05-30 01:54 | disposition home or self-care (01) ==
LOC: EDUNIT# 00:30 → ER 00:37
DX: R11.2 Nausea with vomiting, unspecified (principal); T40.695A Adverse effect of other narcotics, initial encounter; I10 Essential (primary) hypertension; E11.9 Type 2 diabetes mellitus without complications; F17.200 Nicotine dependence, unspecified, uncomplicated; Z79.84 Long term (current) use of oral hypoglycemic drugs; Z79.899 Other long term (current) drug therapy; Y92.89 Other specified places as the place of occurrence of the external cause
CPT/HCPCS: 99283; Q0162

== ENCOUNTER 2023-07-09 08:43 | Emergency (ER) | payer MEDICARE, BC ==
[~2023-07-09] VITALS: Ht 172.7 cm; Wt 69.9 kg
[2023-07-09 09:01] VITALS: BP 139/84; TEMP 98.2; O2SAT 99
[2023-07-09 09:17] LABS: BASOPHILS # (AUTO) 0.1 K/uL (0.0-0.2); EOSINOPHILS # (AUTO) 0.2 K/uL (0.0-0.7); EOSINOPHILS % (AUTO) 2.4 % (0.0-6.0); HEMATOCRIT 43 % (39-51); LYMPHOCYTES # (AUTO) 1.9 K/uL (0.8-4.8); LYMPHOCYTES % (AUTO) 22.8 % (20.0-44.0); MEAN CORPUSCULAR HEMOGLOBIN 27 PG (26.0-33.0); MEAN CORPUSCULAR HGB CONC 33 g/dl (31.0-36.0); MEAN CORPUSCULAR VOLUME 83 fL (80-96); MONOCYTES # (AUTO) 0.5 K/uL (0.1-1.30); MONOCYTES % (AUTO) 5.9 % (2.0-12.0); NEUTROPHILS # (AUTO) 5.7 K/uL (1.8-8.9); NEUTROPHILS % (AUTO) 67.9 % (43.0-81.0); PLATELET COUNT (AUTO) 226 K/uL (150-450); RED BLOOD CELL COUNT(AUTO) 5.12 MIL/uL (4.5-6.0); RED CELL DISTRIBUTION WIDTH 13.8 % (11.5-15.0); WHITE BLOOD COUNT (AUTO) 8.4 K/uL (4.3-11.0)
[2023-07-09 09:29] LABS: BILIRUBIN,DIRECT 0.1 mg/dL (0.0-0.2); BILIRUBIN,TOTAL 0.3 mg/dL (0.2-1.0); CALCIUM, SERUM 9.7 mg/dL (8.5-10.1); CREATININE 0.8 mg/dL (0.6-1.3); POTASSIUM 3.8 mmol/L (3.5-5.1); TOTAL PROTEIN, SERUM 7.5 g/dL (6.4-8.2)
[2023-07-09 09:45] LABS: APPEARANCE,URINE CLEAR (CLEAR); BILIRUBIN,URINE NEGATIVE (NEGATIVE); BLOOD, URINE NEGATIVE Ery/uL (NEGATIVE); COLOR,URINE YELLOW (YELLOW); KETONES,URINE NEGATIVE (NEGATIVE); LEUKOCYTE ESTERASE ,URINE NEGATIVE (NEGATIVE); NITRITE, URINE NEGATIVE (NEGATIVE); PROTEIN,URINE NEGATIVE (NEGATIVE); UGLUCOSE 3+ mg/dL (NEGATIVE); UROBILINOGEN,URINE 0.2 EU/dL (0.2)
[2023-07-09 10:01] LABS: ADD URINE CULTURE NO; BACTERIA,URINE Rare /HPF (None Seen); RBC,URINE NONE SEEN /HPF (0-2); SQUAMOUS EPITHELIAL CELL,UR Rare /HPF (None Seen); WBC,URINE 0-2 /HPF (0-3)
[2023-07-09] MEDS ORDERED: IBUP-1955 PO (11:14)
[2023-07-09] MEDS ORDERED: PHEN-704 PO (11:14)
== END 2023-07-09 11:23 | disposition home or self-care (01) ==
LOC: ER 08:48
DX: R10.30 Lower abdominal pain, unspecified (principal); R30.0 Dysuria; I10 Essential (primary) hypertension; E11.9 Type 2 diabetes mellitus without complications; F17.200 Nicotine dependence, unspecified, uncomplicated; Z98.890 Other specified postprocedural states; Z79.899 Other long term (current) drug therapy; Z79.82 Long term (current) use of aspirin
CPT/HCPCS: 36415; 80048-TC; 80076-TC; 81001; 83690-TC; 85025-TC

== ENCOUNTER 2024-03-18 12:34 | Emergency (ER) | payer MEDICARE, BC ==
[~2024-03-18] VITALS: Ht 172.7 cm; Wt 77.1 kg
[~2024-03-18 12:34] MED LIST changes: +IBUP-1955 PO; +PHEN-704 PO
[2024-03-18] MEDS: IV NS 0.9% 500 ML BAG IV ONE (13:23)
[2024-03-18 13:32] LABS: APPEARANCE,URINE CLEAR (CLEAR); BILIRUBIN,URINE NEGATIVE (NEGATIVE); BLOOD, URINE NEGATIVE Ery/uL (NEGATIVE); COLOR,URINE YELLOW (YELLOW); KETONES,URINE NEGATIVE (NEGATIVE); LEUKOCYTE ESTERASE ,URINE NEGATIVE (NEGATIVE); NITRITE, URINE NEGATIVE (NEGATIVE); PROTEIN,URINE NEGATIVE (NEGATIVE); UGLUCOSE NEGATIVE (NEGATIVE); UROBILINOGEN,URINE 0.2 EU/dL (0.2)
[2024-03-18 13:45] LABS: BASOPHILS # (AUTO) 0.1 K/uL (0.0-0.2); BASOPHILS % (AUTO) 0.9 % (0.0-2.0); EOSINOPHILS # (AUTO) 0.2 K/uL (0.0-0.7); EOSINOPHILS % (AUTO) 2.5 % (0.0-6.0); HEMATOCRIT 39 % (39-51); HEMOGLOBIN 12.9 g/dL (13.5-17.5); LYMPHOCYTES % (AUTO) 33.1 % (20.0-44.0); MEAN CORPUSCULAR HEMOGLOBIN 27 PG (26.0-33.0); MEAN CORPUSCULAR HGB CONC 33 g/dl (31.0-36.0); MEAN CORPUSCULAR VOLUME 82 fL (80-96); MONOCYTES # (AUTO) 0.4 K/uL (0.1-1.30); MONOCYTES % (AUTO) 7.1 % (2.0-12.0); NEUTROPHILS # (AUTO) 3.4 K/uL (1.8-8.9); NEUTROPHILS % (AUTO) 56.4 % (43.0-81.0); PLATELET COUNT (AUTO) 174 K/uL (150-450); RED BLOOD CELL COUNT(AUTO) 4.81 MIL/uL (4.5-6.0); RED CELL DISTRIBUTION WIDTH 13.7 % (11.5-15.0); WHITE BLOOD COUNT (AUTO) 6.1 K/uL (4.3-11.0)
[2024-03-18 13:59] LABS: CALCIUM, SERUM 9.3 mg/dL (8.5-10.1); CARBON DIOXIDE 25 mmol/L (21-32); CHLORIDE 104 mmol/L (98-107); CREATININE 0.9 mg/dL (0.6-1.3); GLUCOSE 130 mg/dL (74-106); POTASSIUM 4.1 mmol/L (3.5-5.1); SODIUM SERUM 139 mmol/L (136-145); UREA NITROGEN, BLOOD 9 mg/dL (7-18)
[2024-03-18 14:02] LABS: ALANINE AMINOTRANSFERASE 41 U/L (12-78); ALBUMIN 3.3 g/dL (3.4-5.0); ALKALINE PHOSPHATASE 67 U/L (46-116); ASPARTATE AMINOTRANSFERASE 21 U/L (15-37); BILIRUBIN,DIRECT 0.1 mg/dL (0.0-0.2); BILIRUBIN,TOTAL 0.3 mg/dL (0.2-1.0); LIPASE 63 U/L (16-77)
[2024-03-18] MEDS ORDERED: LORAZEPAM 1 MG TABLET ONE (15:00)
[2024-03-18 15:13] VITALS: BP 130/72; TEMP 98; O2SAT 99
== END 2024-03-18 15:14 | disposition home or self-care (01) ==
LOC: ER 12:46
DX: R10.9 Unspecified abdominal pain (principal); I10 Essential (primary) hypertension; E11.9 Type 2 diabetes mellitus without complications; F17.200 Nicotine dependence, unspecified, uncomplicated; Z79.1 Long term (current) use of non-steroidal anti-inflammatories (NSAID); Z79.82 Long term (current) use of aspirin; Z79.84 Long term (current) use of oral hypoglycemic drugs; Z79.899 Other long term (current) drug therapy; Z98.890 Other specified postprocedural states
CPT/HCPCS: 99284; 74176; 85025; 80048; 87086; 83690; 80076; 81003; 36415; J7040

== ENCOUNTER 2024-08-07 15:34 | Emergency (ER) | payer MEDICARE, BC ==
[~2024-08-07] VITALS: Ht 172.7 cm; Wt 77.1 kg
[2024-08-07] MEDS: IPRATROPIUM NEB FS 0.5 MG/2.5 ML AMPUL.NEB NEB ONE (16:46)
[2024-08-07] MEDS: ALBUTEROL FS 2.5 MG/3 ML VIAL.NEB NEB ONE (16:46)
[2024-08-07] MEDS ORDERED: ALBUTEROL FS 2.5 MG/3 ML VIAL.NEB ONE (16:48)
[2024-08-07 16:50] VITALS: O2SAT 95
[2024-08-07 17:20] VITALS: O2SAT 100; O2SAT 99
[2024-08-07] MEDS ORDERED: PRED20TA PO (19:28)
[2024-08-07] MEDS ORDERED: predniSONE 20 MG TABLET ONE (19:28)
[2024-08-07] MEDS ORDERED: ALBU18HF2 INH (19:28)
[2024-08-07] MEDS: predniSONE 20 MG TABLET PO ONE (19:30)
[2024-08-07 19:35] VITALS: BP 122/67; TEMP 98.1; O2SAT 94
== END 2024-08-07 19:36 | disposition home or self-care (01) ==
LOC: ER 15:50
DX: B34.9 Viral infection, unspecified (principal); R06.02 Shortness of breath; R06.2 Wheezing; E11.9 Type 2 diabetes mellitus without complications; F17.200 Nicotine dependence, unspecified, uncomplicated; I10 Essential (primary) hypertension; J44.1 Chronic obstructive pulmonary disease with (acute) exacerbation; Z79.82 Long term (current) use of aspirin; Z79.84 Long term (current) use of oral hypoglycemic drugs; Z79.899 Other long term (current) drug therapy; Z20.822 Contact with and (suspected) exposure to COVID-19
CPT/HCPCS: 99284; 71045; 87426; 87804 ×2; 94640; J7512

== ENCOUNTER 2025-01-13 17:22 | Emergency (ER) | payer MEDICARE, BC ==
[~2025-01-13] VITALS: Ht 172.7 cm; Wt 72.6 kg
[~2025-01-13 17:22] MED LIST changes: +ALBU18HF2 INH; +PRED20TA PO
[2025-01-13] MEDS: IV NS 0.9% 1,000 ML BAG IV ONE (18:15)
[2025-01-13 18:23] LABS: BASOPHILS % (AUTO) 0.6 % (0.0-2.0); EOSINOPHILS # (AUTO) 0.2 K/uL (0.0-0.7); EOSINOPHILS % (AUTO) 3.5 % (0.0-6.0); HEMATOCRIT 40 % (39-51); HEMOGLOBIN 12.8 g/dL (13.5-17.5); LYMPHOCYTES # (AUTO) 1.5 K/uL (0.8-4.8); MEAN CORPUSCULAR HEMOGLOBIN 26 PG (26.0-33.0); MEAN CORPUSCULAR HGB CONC 32 g/dl (31.0-36.0); MEAN CORPUSCULAR VOLUME 81 fL (80-96); MONOCYTES # (AUTO) 0.5 K/uL (0.1-1.30); MONOCYTES % (AUTO) 8.2 % (2.0-12.0); NEUTROPHILS # (AUTO) 3.6 K/uL (1.8-8.9); NEUTROPHILS % (AUTO) 62.7 % (43.0-81.0); PLATELET COUNT (AUTO) 188 K/uL (150-450); RED BLOOD CELL COUNT(AUTO) 4.88 MIL/uL (4.5-6.0); RED CELL DISTRIBUTION WIDTH 14.6 % (11.5-15.0); WHITE BLOOD COUNT (AUTO) 5.8 K/uL (4.3-11.0)
[2025-01-13 18:33] LABS: CALCIUM, SERUM 9.3 mg/dL (8.5-10.1); CARBON DIOXIDE 32 mmol/L (21-32); CHLORIDE 99 mmol/L (98-107); GLUCOSE 165 mg/dL (74-106); POTASSIUM 3.6 mmol/L (3.5-5.1); SODIUM SERUM 138 mmol/L (136-145); UREA NITROGEN, BLOOD 14 mg/dL (7-18)
[2025-01-13 18:40] LABS: ALANINE AMINOTRANSFERASE 21 U/L (12-78); ALBUMIN 3.6 g/dL (3.4-5.0); ALKALINE PHOSPHATASE 69 U/L (46-116); ASPARTATE AMINOTRANSFERASE 13 U/L (15-37); BILIRUBIN,DIRECT 0.1 mg/dL (0.0-0.2); BILIRUBIN,TOTAL 0.3 mg/dL (0.2-1.0); TOTAL PROTEIN, SERUM 7.2 g/dL (6.4-8.2)
[2025-01-13 19:01] LABS: LIPASE 49 U/L (16-77)
[2025-01-13 20:04] VITALS: BP 132/72; TEMP 98.3; O2SAT 98
== END 2025-01-13 20:04 | disposition home or self-care (01) ==
LOC: ER 17:24
DX: R10.84 Generalized abdominal pain (principal); M25.561 Pain in right knee; E11.9 Type 2 diabetes mellitus without complications; F17.200 Nicotine dependence, unspecified, uncomplicated; I10 Essential (primary) hypertension; Z79.52 Long term (current) use of systemic steroids; Z79.82 Long term (current) use of aspirin; Z79.84 Long term (current) use of oral hypoglycemic drugs; Z79.899 Other long term (current) drug therapy; Z96.659 Presence of unspecified artificial knee joint; Z86.79 Personal history of other diseases of the circulatory system; Z87.39 Personal history of other diseases of the musculoskeletal system and connective tissue
CPT/HCPCS: 99285; 74176; 96360; 71045; 93005; 85025; 80048; 83690; 80076; 36415; 84484; 82962; J7030

== ENCOUNTER 2025-05-18 13:36 | Inpatient (IN) | payer MEDICARE, BC ==
[~2025-05-18] VITALS: Ht 172.7 cm; Wt 76.4 kg
[2025-05-18 15:07] LABS: PLATELET COUNT (AUTO) 264 K/uL (150-450); RED BLOOD CELL COUNT(AUTO) 5.00 MIL/uL (4.5-6.0); RED CELL DISTRIBUTION WIDTH 14.7 % (11.5-15.0); WHITE BLOOD COUNT (AUTO) 7.6 K/uL (4.3-11.0)
[2025-05-18 15:10] LABS: CALCIUM, SERUM 9.3 mg/dL (8.5-10.1); CREATININE 1.0 mg/dL (0.6-1.3); SODIUM SERUM 138 mmol/L (136-145); UREA NITROGEN, BLOOD 12 mg/dL (7-18)
[2025-05-18 15:15] LABS: ASPARTATE AMINOTRANSFERASE 23 U/L (15-37); TOTAL PROTEIN, SERUM 7.4 g/dL (6.4-8.2)
[2025-05-18 15:18] LABS: APPEARANCE,URINE CLEAR (CLEAR); BLOOD, URINE NEGATIVE Ery/uL (NEGATIVE); LEUKOCYTE ESTERASE ,URINE NEGATIVE (NEGATIVE); NITRITE, URINE NEGATIVE (NEGATIVE); UGLUCOSE TRACE mg/dL (NEGATIVE)
[2025-05-18 15:23] LABS: ADD URINE CULTURE NO; SQUAMOUS EPITHELIAL CELL,UR 0-2 /HPF (None Seen)
[2025-05-18] MEDS: IV NS 0.9% 500 ML BAG IV ONE (15:35)
[2025-05-18 16:07] LABS: ALCOHOL, BLOOD 28 mg/dL (0-10)
[2025-05-18] MEDS: LIDOCAINE VISCOUS 2% UD 15 ML UDC MM ONE (16:33)
[2025-05-18] MEDS: MAG HYDROX/AL HYDROX/SIMETH 30 ML UDC PO ONE (16:33)
[2025-05-18] MEDS: FAMOTIDINE/PF INJ 20 MG/2 ML VIAL IV ONE (16:34)
[2025-05-18] MEDS ORDERED: ACETAMINOPHEN 325 MG TABLET PO PRN (17:30)
[2025-05-18] MEDS ORDERED: Z GUARD REMEDY 4 OZ OINT TP PRN (17:30)
[2025-05-18] MEDS ORDERED: DEXTROSE 50%-WATER 50 ML DISP.SYRIN IV PRN (17:30)
[2025-05-18] MEDS ORDERED: MAGNESIUM HYDROXIDE 30 ML UDC PO PRN (17:30)
[2025-05-18] MEDS ORDERED: MAG HYDROX/AL HYDROX/SIMETH 30 ML UDC PO PRN (17:30)
[2025-05-18] MEDS: BLOOD SUGAR DIAGNOSTIC 1 EACH STRIP VI SCH (17:30)
[2025-05-18] MEDS ORDERED: ONDANSETRON HCL/PF 4 MG/2 ML VIAL IVP PRN (17:30)
[2025-05-18] MEDS ORDERED: ATORVASTATIN 10 MG TABLET ONE (17:49)
[2025-05-18] MEDS: ATORVASTATIN 40 MG TABLET PO SCH (18:00)
[2025-05-18] MEDS ORDERED: ATENOLOL 50 MG TABLET ONE (18:25)
[2025-05-18] MEDS: ATENOLOL 50 MG TABLET PO SCH (18:30)
[2025-05-18 20:30] VITALS: BP 149/82; TEMP 97.9; O2SAT 99
[2025-05-18 20:38] VITALS: BP 149/82; TEMP 97.9; O2SAT 99
[2025-05-18] MEDS: *INSULIN REGULAR(HUMULIN R)HUM 100 UNIT/ML VIAL SQ PRN (22:15)
[2025-05-19] VITALS: BP 135/71; TEMP 97.7; O2SAT 98
[2025-05-19 04:00] VITALS: BP 143/78; TEMP 98.1; O2SAT 97
[2025-05-19] MEDS: AMLODIPINE BESYLATE 10 MG TABLET PO SCH (06:19)
[2025-05-19] MEDS: INSULIN REGULAR, HUMAN 100 UNIT/ML 3 ML VIAL SQ PRN (06:36)
[2025-05-19 07:30] VITALS: BP 127/69; TEMP 98.1; O2SAT 97
[2025-05-19 07:40] LABS: PLATELET COUNT (AUTO) 213 K/uL (150-450); RED BLOOD CELL COUNT(AUTO) 4.94 MIL/uL (4.5-6.0); RED CELL DISTRIBUTION WIDTH 14.7 % (11.5-15.0); WHITE BLOOD COUNT (AUTO) 6.3 K/uL (4.3-11.0)
[2025-05-19 07:53] LABS: CALCIUM, SERUM 8.9 mg/dL (8.5-10.1); CREATININE 0.8 mg/dL (0.6-1.3); PHOSPHORUS 3.0 mg/dL (2.5-4.9); SODIUM SERUM 137.0 mmol/L (136-145); UREA NITROGEN, BLOOD 10.0 mg/dL (7-18)
[2025-05-19] MEDS: METFORMIN 500 MG TABLET PO SCH (08:50)
[2025-05-19] MEDS: HYDROCHLOROTHIAZIDE 25 MG TABLET PO SCH (08:50)
[2025-05-19 08:51] VITALS: BP 127/69
[2025-05-19] MEDS: LOSARTAN POTASSIUM 50 MG TABLET PO SCH (08:51)
== END 2025-05-19 15:45 | disposition left against medical advice (07) | DRG 66 ==
LOC: ER 13:39 → TELE 19:44
PROVIDERS: ADMIT Internal Medicine; ATTEND Internal Medicine
DX: I62.00 Nontraumatic subdural hemorrhage, unspecified (principal); E78.5 Hyperlipidemia, unspecified; I10 Essential (primary) hypertension; E11.9 Type 2 diabetes mellitus without complications; Z79.82 Long term (current) use of aspirin; Z79.84 Long term (current) use of oral hypoglycemic drugs; Z87.891 Personal history of nicotine dependence; Z98.890 Other specified postprocedural states; F10.20 Alcohol dependence, uncomplicated; R42 Dizziness and giddiness
CPT/HCPCS: 36415; 70450-TC; 71045-TC; 80048-TC; 80076-TC; 81001; 82962-TC; 83690-TC; 83735-TC; 84100-TC; 84439-TC; 84443-TC; 84484-TC; 85025-TC; 86850-TC; 93307-TC; 93880-TC; G0378; G0480; J1308; J1815; J7040